=== PATIENT | male | born 1970 | race Two or more races ===

== ENCOUNTER 2023-05-30 08:04 | Outpatient (REF) | payer MEDICAID, SELFPAY ==
[2023-05-30 14:38] LABS: MANUAL DIFF FLAG NO
[2023-05-30 14:43] LABS: Basophils Absolute Auto 0.1 X10*3/uL (0.0-0.2); Basophils Percent Auto 0.7 % (0-2); Eosinophils Absolute Auto 0.1 X10*3/uL (0.0-0.4); Eosinophils Percent Auto 2.1 % (0-4); Hematocrit 51.3 % (42.0-52.0); Hemoglobin 16.2 g/dl (14.0-18.0); Imm Gran Abs Auto 0.02 X10*3/uL (0.00-0.03); Imm Gran Pct Auto 0.3 % (0.0-0.4); Lymphocytes Absolute Auto 2.6 X10*3/uL (1.2-4.9); Mean Corpuscular HGB Conc 31.6 g/dl (31.0-36.0); Mean Corpuscular Hemoglobin 29.1 pg (27.0-33.0); Mean Corpuscular Volume 92.3 fL (80.0-98.0); Mean Platelet Volume 11.2 fL (9.4-12.4); Monocytes Absolute Auto 0.8 X10*3/uL (0.1-1.2); Monocytes Percent Auto 11.2 % (2-11); Neutrophils Absolute Auto 3.1 x10*3/uL (2.0-8.3); Neutrophils Percent Auto 46.7 % (45-73); Platelet Count 225 X10*3/uL (160-400); Red Blood Count 5.56 X10*6/uL (4.60-5.80); Red Cell Distribution Width 13.8 % (11.0-16.0); White Blood Count 6.7 X10*3/uL (4.8-10.8)
[2023-05-30 15:10] LABS: Alanine Aminotransferase 22 U/L (0-40); Albumin Level 4.4 g/dL (3.5-5.0); Alkaline Phosphatase 76 U/L (39-117); Anion Gap 15 (12-20); Aspartate Amino Transferase 20 U/L (5-37); Bilirubin Direct 0.3 mg/dL (0.0-0.5); Bilirubin Total 0.7 mg/dL (0.0-1.0); Blood Urea Nitrogen 13 mg/dL (9-16); Carbon Dioxide 26 mmol/L (22-29); Chloride 104 mmol/L (96-108); Cholesterol 127 mg/dL (<200); Estimated Glomerular Filt Rate > 60; Glucose Fasting 135 mg/dL (60-99); HDL Cholesterol 40 mg/dL (>40); LDL Cholesterol Calculated 58 mg/dL (<100); Potassium 3.8 mmol/L (3.3-5.1); Sodium 141 mmol/L (135-145); Total Protein 7.5 g/dL (6.5-8.0); Triglycerides 149 mg/dL (<150)
[2023-05-30 15:17] LABS: TSH reflex Free T4 2.32 uIU/mL (0.32-4.0)
[2023-05-30 15:26] LABS: Creatinine Urine 68.12 mg/dL; Microalbum/Creatinine Ratio Ur 98.3 ug/mg cr (<30)
== END 2023-05-30 08:05 | disposition home or self-care (01) ==
LOC: HO.CHCLDS 08:04
PROVIDERS: Visit Provider Internal Medicine
DX: E11.65 Type 2 diabetes mellitus with hyperglycemia (principal)
CPT/HCPCS: 36415; 80048; 80061; 80076; 82043; 82570; 84443; 85025

== ENCOUNTER 2024-11-22 10:22 | Outpatient (REF) | payer MEDICAID, SELFPAY ==
--- OUTSIDE RECORDS SUMMARY | 2024-11-22 11:37 | XMS_ITS | Clinical Summary ---
Author Organization [email or web address] Address [address] [facility] [address] [place] [address] Care Team Providers Care Senior Environmental Scientist Name Role Phone Herminio Swartz MD Primary Care Provider [phone] Allergies Active Allergy Reactions Criticality Noted Date Comments Sitagliptin 03/24/2021 Medications Invokana 300 MG TAKE 1 TABLET BY MOUTH EVERY DAY BEFORE FIRST MEAL OF THE DAY 12/26/19 23 Active celecoxib (CeleBREX) 100 MG capsuleIndicat ions:Plantar fasciitis TAKE 1 CAPSULE(100 MG) BY MOUTH TWICE DAILY 60 capsule 11/03/19 24 Active atorvastatin (Lipitor) 40 MG tabletIndicati ons:Hyperchole sterolemia Take 1 tablet (40 mg) by mouth Once per day. 90 tablet 3 10/31/19 25 Active omeprazole (PriLOSEC) [address] capsuleIndicat ions:Hyperchol esterolemia Take 1 capsule (20 mg) by mouth before breakfast. Do not crush or chew. 30 capsule 3 10/31/19 25 Active canagliflozin (Invokana) 300 MGIndications: Type 2 diabetes mellitus with hyperglycemia, without long-term current use of insulin (CMS/HCC) TAKE 1 TABLET BY MOUTH EVERY DAY BEFORE FIRST MEAL OF THE DAY 90 tablet 3 10/31/19 25 Active lisinopril 5 MG tabletIndicati ons:Type 2 diabetes mellitus with hyperglycemia, without long-term current use of insulin (CMS/HCC) TAKE 1 TABLET BY MOUTH ONCE DAILY 90 tablet 3 10/31/19 25 Active metFORMIN (Glucophage) 500 MG tabletIndicati ons:Type 2 diabetes mellitus with hyperglycemia, without long-term current use of insulin (CMS/HCC) TAKE 2 TABLETS BY MOUTH TWICE DAILY WITH THE MORNING AND EVENING MEAL 360 tablet 10/31/19 25 Active Alcohol Swabs (Easy Touch Alcohol Prep Medium) 70 % padsIndication s:Type 2 diabetes mellitus with hyperglycemia, without long-term current use of insulin (CMS/[facility]),Type 2 diabetes mellitus with hyperglycemia, without long-term current use of insulin ([facility]) Once a day 100 each 11 10/31/19 25 Active Alcohol Swabs (Easy Touch Alcohol Prep Medium) 70 % pads USE DIRECTED DAILY 05/30/20 22 025 Discontinued(Re order (will not trigger notification to Pharmacy)) canagliflozin (Invokana) 300 MGIndications: Type 2 diabetes mellitus with hyperglycemia, without long-term current use of insulin ([facility]) TAKE 1 TABLET BY MOUTH EVERY DAY BEFORE FIRST MEAL OF THE DAY 90 tablet 3 05/25/20 23 025 Discontinued(Ot her) omeprazole (PriLOSEC) [address] capsuleIndicat ions:Hyperchol esterolemia TAKE 1 CAPSULE BY MOUTH BEFORE BREAKFAST DAILY. DO NOT CRUSH, CHEW, OR SPLIT. 30 capsule 3 03/01/20 24 025 Discontinued(Re order (will not trigger notification to Pharmacy)) lisinopril 5 MG tabletIndicati ons:Type 2 diabetes mellitus with hyperglycemia, without long-term current use of insulin ([facility]) TAKE 1 TABLET BY MOUTH ONCE DAILY 90 tablet 3 04/22/20 24 025 Discontinued(Re order (will not trigger notification to Pharmacy)) atorvastatin (Lipitor) 40 MG tabletIndicati ons:Hyperchole sterolemia TAKE 1 TABLET(40 MG) BY MOUTH IN THE MORNING 90 tablet 3 04/22/20 24 025 Discontinued(Re order (will not trigger notification to Pharmacy)) metFORMIN (Glucophage) 500 MG tabletIndicati ons:Type 2 diabetes mellitus with hyperglycemia, without long-term current use of insulin ([facility]) TAKE 2 TABLETS BY MOUTH TWICE DAILY WITH THE MORNING AND EVENING MEAL 360 tablet 04/22/20 24 025 Discontinued(Re order (will not trigger notification to Pharmacy)) metFORMIN (Glucophage) 500 MG tabletIndicati ons:Type 2 diabetes mellitus with hyperglycemia, without long-term current use of insulin ([facility]) TAKE 2 TABLETS BY MOUTH TWICE DAILY WITH THE MORNING AND EVENING MEAL 360 tablet 10/30/19 25 025 Discontinued(Re order (will not trigger notification to Pharmacy)) Active Problems Problem Noted Date Diagnosed Date Hypercholesterolemia 05/25/2023 Type 2 diabetes mellitus 05/25/2023 Encounters Date Type Department Care Team Description 10/31/2024 11:30 AM EST Office Visit [facility] MED & PEDS [address] [place] [address] Herminio Swartz MD Hypercholesterolemia (Primary Dx); Type 2 diabetes mellitus with hyperglycemia, without long-term current use of insulin ([facility]); Encounter for screening colonoscopy; Hypercholesterolemia; Type 2 diabetes mellitus with hyperglycemia, without long-term current use of insulin ([facility]); Encounter for immunization 10/31/2024 Travel 10/30/2024 Refill [facility] MEDICINE [address] [place] [address] Herminio Swartz MD Type 2 diabetes mellitus with hyperglycemia, without long-term current use of insulin ([facility]) from Last 3 Months Immunizations Name Administration Dates Next Due Influenza injectable quadrivalent preservative f ree 10/05/2018 Pneumococcal Conjugate PCV 13 03/13/2017, 017 Pneumococcal Conjugate PCV 20 10/31/2024 Tdap 03/13/2017 Social History Tobacco Use Types Packs/Day Years Used Date Smoking Tobacco: Former Cigarettes 1 30 1 991 - 2020 Smokeless Tobacco: Never Tobacco Cessation:Counseling Given: Not Answered Depression Answer Date Recorded Patient Health Questionnaire-9 Score 0 05/25/2023 Housing Stability Answer Date Recorded What is your housing situation today? I have emerald youssef 07/21/[address] you li ve. Do you have problems with any of the following? None of the above 07/21/2023 Food Insecurity Answer Date Recorded Within the past 12 months, y ou worried that your food would run out before you got money to buy more: Never True 07/21/2023 Within the past 12 months,th e food you bought just didn't last and you didn't have enough money to get more: Never True 11/2022 Utilities Answer Date Recorded In the past 12 months, has t he electric, gas, oil or water [employer] threatened to shut off services in your home? No 07/21/2023 Depression Answer Date Recorded Patient Health Questionnaire-2 Score 0 05/25/2023 Sex and Gender Information Value Date Recorded Sex Assigned at Male 07/18/2022 10:34 AM EDT Legal Sex Male 10:34 AM EDT Gender Identity Male 07/18/2022 10:34 AM EDT Sexual Orientation Straight 07/18/2022 10 :34 AM EDT Last Filed Vital Signs Vital Sign Reading Time Taken Comments Blood Pressure 145/97 10/31/2024 10:52 AM EST Pulse 87 10/31/2024 10:52 AM EST Temperature 36.8 ??C (98.3 ??F) 10/31/2024 10:[address] Respiratory Rate 20 10/31/2024 10:52 AM EST Oxygen Saturation 98% 10/31/2024 10:52 AM EST Inhaled Oxygen Concentration - - Weight 69.2 kg (152 lb 9.6 oz) 10/31/2024 10:52 AM EST Height 175.3 cm (5' 9 ) 10/31/2024 10:52 AM EST Body Mass Index 22.54 10/31/2024 10:52 AM EST Plan of Treatment Upcoming Encounters Date Type Department Care Team (Late st Contact Info) Description 12/19/2024 9:15 AM EDT Office Visit [facility] CH[facility] MED & PEDS [address] [place] [address] Herminio Swartz MD [address] [place] [address] Health Maintenance Due Date Last Done Comments CT Colonography 1972 Colonoscopy 1972 Colorectal Cancer Screening 1972 FIT DNA/Cologuard 1972 FIT 1972 FOBT 1972 HIV Screening 1972 SDOH Screening 1972 Sigmoidoscopy 1972 Alcohol/Substance Use Screening 1984 Family Planning (PISQ) 1987 Hepatitis C Screening 1990 Hepatitis B Vaccines (1 of 3 - 19+ 3-dose series) 1991 Lung Cancer Screening 2022 Zoster Vaccines (1 of 2) 2022 Diabetes: Foot Exam 05/24/2023 COVID-19 Vaccine (4 2023-2 5 season) 2024 09/03/2021, 02/18/2021, 01/28/2021 Influenza Vaccine (#1) 2024 10/05/2018 Depression Screening 05/25/2024 05/25/2023, 05/25/2023 Diabetes: Urine Protein Screening 05/30/2024 05/30/2023, 02/19/2021 Lipid Panel 05/30/2024 05/30/2023, 02/19/2021 Eye Exam 07/17/2024 07/17/2023 Diabetes: Hemoglobin A1C 01/28/2025 025, 10/09/2023, 05/25/2023 Tobacco Screening 10/31/2025 10/31/2024 DTaP/Tdap/Td Vaccines (2 - T d or Tdap) 03/13/2027 03/13/2017 RSV Patients and Patients Aged 60 years or older (1 - 1-dose 75+ series) 2047 Pneumococcal Vaccine: 50+ Years Completed 10/31/2024, 03/13/2017, 03/13/2017 HIB Vaccines Aged Out No longer eligi ble based on patient's age to complete this topic HPV Vaccines Aged Out No longer eligi ble based on patient's age to complete this topic Hepatitis A Vaccines Aged Out No long er eligible based on patient's age to complete this topic IPV Vaccines Aged Out No longer eligi ble based on patient's age to complete this topic Meningococcal Vaccine Aged Out No abdi schuyler eligible based on patient's age to complete this topic RSV under 20 months Aged Out No longe r eligible based on patient's age to complete this topic Rotavirus Vaccines Aged Out No longer eligible based on patient's age to complete this topic Procedures Procedure Name Priority Date/Time Associated Diagnosis Comments POCT GLUCOSE Routine 10/31/2024 11:02 AM EST Type 2 diabetes mellitus with hyperglycemia, without long-term current use of insulin ([facility]) POCT GLYCATED HEMOGLOBIN, TOTAL Routine 10/31/2024 11:02 AM EST Type 2 diabetes mellitus with hyperglycemia, without long-term current use of insulin ([facility]) DIABETES EYE EXAM Routine 07/17/2023 ALBUMIN, RANDOM URINE W/CREATININE Routine 05/30/2023 8:10 AM EDT LIPID PANEL, STANDARD Routine 05/30/2023 8:09 AM EDT Type 2 diabetes mellitus with hyperglycemia, without long-term current use of insulin ([facility]) from Last 3 Months or Most Recently Relevant to Health Maintenance Results * (ABNORMAL) POCT A1C (10/31/2024 11:02 AM EST) Hemoglobin A1C 11.6(A) 4.0 - 6.0 % QC Media Lot # Comment:[id number] Lot# Expiration Date Comment:07/05/2026 Blood 10/31/2024 11:0 2 AM EST Herminio Swartz MD POINT OF CARE TEST ENTER/ED IT ORDERABLES Final Result * (ABNORMAL) POCT glucose manually resulted (10/31/2024 11:02 AM EST) Glucose Blood, POC 296(A) 60 - 200 mg/dL QC Media Lot # Comment:[id number] Lot# Expiration Date Comment:12/24/2024 Blood Capillary blood specimen / Unknown 10/31/2024 11:02 AM EST Herminio Swartz MD POINT OF CARE TEST ENTER/ED IT ORDERABLES Final Result * (ABNORMAL) Diabetes Eye Exam (07/17/2023) Eye Exam Abnormal(A) Normal Narrative Arline Bansal [place] - 07/17/2023 Follow in one year us Daria Adornato [employer] MAINTENANCE Final Result * (ABNORMAL) Albumin, Random Urine W/Creatinine (05/30/2023 8:10 AM EDT) Creatinine, Urine 68.12 mg/dL [facility] Microalbumin Urine 67.0 mg/L H [facility] Microalbum Creatinine Ratio Ur 98.3(H) <30 ug/mg cr [facility] Comment:Albumin/Creatinine R atio Reference Ranges: Normal: < 30 ug/mg creatinine Microalbuminuria: 30 - 300 ug/mg creatinineClinical Albuminuria: > 300 ug/mg creatinine 05/30/2023 8:10 AM EDT 05/30/2023 2:33 PM EDT us Herminio Swartz MD LAB URINE ORDERABLES Final Result [facility] [address] [place] [phone] * (ABNORMAL) Lipid Panel, Standard (05/30/2023 8:09 AM EDT) Triglycerides 149 <150 mg/dL [facility] Comment:Desirable Triglyceri de: less than 150 mg/dLBorderline High Triglyceride 150-199 mg/dLHigh Triglyceride: 200-499 mg/dLVery High Triglyceride: greater than or equal to 5OO mg/dL Cholesterol 127 <200 mg/dL [facility] Comment:Desirable Cholestero l: less than 200 mg/dLBorderline High Cholesterol: 200-239 mg/dLHigh Cholesterol: greater than 239 mg/dL LDL Cholesterol Calculated 58 <100 mg/dL [facility] Comment:Desirable LDL: less than 100 mg/dLNear Optimal/Above Optimal LDL: 110- 129 mg/dLBorderline High LDL: 130-159 mg/dLHigh LDL: 160-189 mg/dLVery High LDL: greater than or equal to 190 mg/dL HDL Cholesterol 40(L) >40 mg/dL [facility] Comment:Desirable HDL: great er than 40 mg/dL Note: This HDL assay may give artificially low results in patients with liver disease. Blood Venous blood specimen / Unknown 05/30/2023 8:09 AM EDT 05/30/2023 2:34 PM EDT Herminio Swartz MD LAB BLOOD ORDERABLES Final Result [facility] [address] [place] [address] [phone] from Last 3 Months or Most Recently Relevant to Health Maintenance Insurance [facility] C3 Care Teams Senior Environmental Scientist Relationship Specialty Start Date End Date Herminio Swartz MD [address] [place] [address] PCP - General Internal Medicine 10/05/18
--- OUTSIDE RECORDS SUMMARY | 2024-11-22 11:37 | XMS_ITS | Encounter Summary ---
Author Organization [email or web address] Address [address] [facility] [address] [place] [address] Care Team Providers Care Funding Analyst Name Role Phone Herminio Swartz MD Primary Care Provider [phone] Reason for Visit * Reason Comments Med Refill Encounter Details Date Type Department Care Team ([facility] st Contact Info) Description 11/13/2023 Refill [facility] MED & PEDS [address] [place], [place] [id number] Herminio Swartz MD [address] [place] [address] Plantar fasciitis Social History Tobacco Use Types Packs/Day Years Used Date Smoking Tobacco: Former Cigarettes 1 30 1 991 - 2020 Smokeless Tobacco: Never Depression Answer Date Recorded Patient Health Questionnaire-9 [...] t he electric, gas, oil or water company threatened to shut off services in your home? No 07/21/2023 Depression Answer Date Recorded Patient Health Questionnaire-2 Score 0 05/25/2023 Sex and Gender Information Value Date Recorded Sex Assigned at Male 07/18/2022 10:34 AM EDT Legal Sex Male 10:34 AM EDT Gender Identity Male 07/18/2022 10:34 AM EDT Sexual Orientation Straight 07/18/2022 10 :34 AM EDT documented as of this encounter Plan of Treatment Upcoming Encounters Date Type Department Care Team (Late st Contact Info) Description 12/19/2024 9:15 AM EDT Office Visit [facility] MED & PEDS [address] [place] [address] Herminio Swartz MD [address] [place] [address] documented as of this encounter Visit Diagnoses Diagnosis Plantar fasciitis Plantar fascial fibromatosis documented in this encounter Additional Health Concerns Assessment Noted Time PHQ-9 Depression Total Score: 0 05/25/20 23 4:33 PM EDT documented as of this encounter Care Teams Funding Analyst Relationship Specialty Start Date End Date Herminio Swartz MD [address] [place] [address] PCP - General Internal Medicine 10/05/18 documented as of this encounter
--- OUTSIDE RECORDS SUMMARY | 2024-11-22 11:37 | XMS_ITS | Encounter Summary ---
Author Organization [employer] Address [address] [facility] 7[address] [place] [address] Care Team Providers Care Director Recreation Name Role Phone Herminio Swartz MD Primary Care Provider [phone]- [phone] Encounter Details Date Type Department Care Team (Late st Contact Info) Description 01/20/2023 Orders Only [facility] MED & PEDS [address] [place] [address] Shaniqua Harp LPN Social History Tobacco Use Types Packs/Day Years Used Date Smoking Tobacco: Never Assessed Sex and Gender Information Value Date Recorded Sex Assigned at Male 07/18/2022 10:34 AM EDT Legal Sex Male 10:34 AM EDT Gender Identity Male 07/18/2022 10:34 AM EDT Sexual Orientation Straight 07/18/2022 10 :34 AM EDT documented as of this encounter Plan of Treatment Upcoming Encounters Date Type Department Care Team (Late st Contact Info) Description 12/19/2024 9:15 AM EDT Office Visit [facility] MED & PEDS [address] [place] [address] Herminio Swartz MD [address] [place] [address] documented as of this encounter Procedures Procedure Name Priority Date/Time Associated Diagnosis Comments ALBUMIN, RANDOM URINE W/CREATININE Routine 05/30/2023 8:10 AM EDT BASIC METABOLIC PANEL, FASTING Routine 05/30/2023 8:09 AM EDT documented in this encounter Results * (ABNORMAL) Albumin, Random Urine W/Creatinine (05/30/2023 8:10 AM EDT) Creatinine, Urine 68.12 mg/dL [facility] Microalbumin Urine 67.0 mg/L H [facility] Microalbum Creatinine Ratio Ur 98.3(H) <30 ug/mg cr [facility] Comment:Albumin/Creatinine R atio Reference Ranges: Normal: < 30 ug/mg creatinine Microalbuminuria: 30 - 300 ug/mg creatinineClinical Albuminuria: > 300 ug/mg creatinine 05/30/2023 8:10 AM EDT 05/30/2023 2:33 PM EDT us Herminio Swartz MD LAB URINE ORDERABLES Final Result [facility] [address] [place] [phone] * (ABNORMAL) Basic Metabolic Panel, Fasting (05/30/2023 8:09 AM EDT) Sodium 141 135 - 145 mmol/L [facility] Potassium 3.8 3.3 - 5.1 mmol/L [facility] Chloride 104 96 - 108 mmol/L [facility] Carbon Dioxide 26 22 - 29 mmol/L [facility] Anion Gap 15 12 - 20 [facility] Urea Nitrogen (BUN) 13 9 - 16 mg/dL [facility] Creatinine, Serum 0.79 0.5 - 1.4 mg/dL [facility] Estimated Glomerular Filt Rate >60 [facility] Comment:NOTE: For -Am erican individuals, multiply the result by 1.210.Chronic Kidney Disease: Estimated GFR < 60 mL/min/[id number] Kidney Disease: Estimated GFR < 15 mL/min/1.73m2 Glucose Fasting 135(H) 60 - 99 mg/dL [facility] Comment:A fasting glucose of 126 mg/dl or greater on more than oneoccasion is considered diagnostic of diabetes. Calcium 10.0 8.4 - 10.2 mg/dL [facility] 05/30/2023 8:09 AM EDT 05/30/2023 2:34 PM EDT Herminio Swartz MD LAB BLOOD ORDERABLES Final Result [facility] [address] [place] [phone] documented in this encounter Visit Diagnoses Not on filedocumented in this encounter Care Teams Director Recreation Relationship Specialty Start Date End Date Herminio Swartz MD [address] [place] [phone] PCP - General Internal Medicine 10/05/18 documented as of this encounter
--- OUTSIDE RECORDS SUMMARY | 2024-11-22 11:37 | XMS_ITS | Encounter Summary ---
Author Organization [employer] Address [address] [facility] [address] [place] [address] Care Team Providers Care Health Teacher Name Role Phone Herminio Swartz MD Primary Care Provider [phone] Reason for Visit * Reason Comments Follow-up Dm/bp Diabetes Hyperlipidemia Encounter Details Date Type Department Care Team (Latest Contact Info) Description 10/31/2024 11:30 AM EST Office Visit [facility] P[facility]S [address] [place] [address] Herminio Swartz MD [address] [place] [address] Hypercholesterolemia (Primary Dx); Type 2 diabetes mellitus with hyperglycemia, without long-term current use of insulin (CMS/HCC); Encounter for screening colonoscopy; Hypercholesterolemia; Type 2 diabetes mellitus with hyperglycemia, without long-term current use of insulin (CMS/HCC); Encounter for immunization Social History Tobacco Use Types Packs/Day Years Used Date Smoking Tobacco: Former Cigarettes 30 1 991 - 2020 Smokeless Tobacco: Never Depression Answer Date Recorded Patient Health Questionnaire-9 Score 0 05/25/2023 Housing Stability Answer Date Recorded What is your housing situation today? I have emeraldkinza youssef 07/21/[address] you [...] AM EDT documented as of this encounter Last Filed Vital Signs Vital Sign Reading [...] Mass Index 22.54 10/31/2024 10:52 AM EST documented in this encounter Progress Notes * Herminio Swartz MD - 10/31/2024 11:30 AM EST Subjective Patient ID: Reagan Padilla is a 54 y.o. male who presents for Follow-up (Dm/bp), Diabetes, and Hyperlipidemia. Diabetes He presents for his follow-up diabetic visit. He has type 2 diabetes mellitus. Pertinent negatives for hypoglycemia include no pallor. Pertinent negatives for diabetes include no blurred vision, no chest pain, no fatigue, no foot paresthesias, no foot ulcerations, no polydipsia, no polyphagia, no polyuria, no visual change, no weakness and no weight loss. Hyperlipidemia Pertinent negatives include no chest pain, myalgias or shortness of breath. Mr. Reagan Padilla has lost his insurance and has been off medication for the last 3 months. He has not been able to check his fingerstick at home. Has not been checking his blood pressure either. He denies any headache or blurry vision today. Denies any symptoms of hypoglycemia since his last visit. Patient Active Problem List Diagnosis Hypercholesterolemia Type 2 diabetes mellitus ([facility]) Current Outpatient Medications on File Prior to Visit Medication Sig Dispense Refill celecoxib (CeleBREX) 100 MG capsule TAKE 1 CAPSULE(100 MG) BY MOUTH TWICE DAILY 60 capsule 0 Invokana 300 MG TAKE 1 TABLET BY MOUTH EVERY DAY BEFORE FIRST MEAL OF THE DAY [DISCONTINUED] Alcohol Swabs (Easy Touch Alcohol Prep Medium) 70 % pads USE DIRECTED DAILY [DISCONTINUED] atorvastatin (Lipitor) 40 MG tablet TAKE 1 TABLET(40 MG) BY MOUTH IN THE MORNING 90 tablet 3 [DISCONTINUED] canagliflozin (Invokana) 300 MG TAKE 1 TABLET BY MOUTH EVERY DAY BEFORE FIRST MEAL OF THE DAY 90 tablet 3 [DISCONTINUED] lisinopril 5 MG tablet TAKE 1 TABLET BY MOUTH ONCE DAILY 90 tablet 3 [DISCONTINUED] metFORMIN (Glucophage) 500 MG tablet TAKE 2 TABLETS BY MOUTH TWICE DAILY WITH THE MORNING AND EVENING MEAL 360 tablet 0 [DISCONTINUED] metFORMIN (Glucophage) 500 MG tablet TAKE 2 TABLETS BY MOUTH TWICE DAILY WITH THE MORNING AND EVENING MEAL 360 tablet 0 [DISCONTINUED] omeprazole (PriLOSEC) [address] capsule TAKE 1 CAPSULE BY MOUTH BEFORE BREAKFAST DAILY. DO NOT CRUSH, CHEW, OR SPLIT. 30 capsule 3 No current facility-administered medications on file prior to visit. Review of Systems Constitutional: Negative for appetite change, chills, diaphoresis, fatigue and weight loss. Eyes: Negative for blurred vision. Respiratory: Negative for cough, choking and shortness of breath. Cardiovascular: Negative for chest pain and leg swelling. Gastrointestinal: Negative for anal bleeding, blood in stool and constipation. Endocrine: Negative for polydipsia, polyphagia and polyuria. Musculoskeletal: Negative for gait problem, joint swelling and myalgias. Skin: Negative for pallor and rash. Neurological: Negative for weakness. Objective BP (!) 145/97 (BP Location: Left arm, Patient Position: Sitting, BP Cuff Size: Large adult) Pulse87 Temp 98.3 ??F (36.8 ??C) (Oral) Resp 20 Ht 5' 9 (1.753 m) Wt 152 lb 9.6 oz (69.2 kg) SpO2 98% BMI 22.54 kg/m?? Physical Exam Constitutional: General: He is not in acute distress. Appearance: Normal appearance. He is not ill-appearing, toxic-appearing or diaphoretic. Cardiovascular: Rate and Rhythm: Normal rate. Heart sounds: No murmur heard. No friction rub. No gallop. Pulmonary: Effort: Pulmonary effort is normal. Abdominal: Palpations: Abdomen is soft. Skin: General: Skin is warm. Neurological: General: No focal deficit present. Mental Status: He is alert. Psychiatric: Mood and Affect: Mood normal. Assessment/Plan Diagnoses and all orders for this visit: Hypercholesterolemia - CBC auto differential; Future - Comprehensive Metabolic Panel; Future - Lipid Panel, Standard; Future - TSH W/Reflex to FT4; Future - Albumin, Random Urine W/Creatinine; Future - atorvastatin (Lipitor) 40 MG tablet; Take 1 tablet (40 mg) by mouth Once per day. - omeprazole (PriLOSEC) [address] capsule; Take 1 capsule (20 mg) by mouth before breakfast. Do not crush or chew. Type 2 diabetes mellitus with hyperglycemia, without long-term current use of insulin ([facility]) - POCT A1C - POCT glucose manually resulted - CBC auto differential; Future - Comprehensive Metabolic Panel; Future - Lipid Panel, Standard; Future - TSH W/Reflex to FT4; Future - Albumin, Random Urine W/Creatinine; Future - Hepatitis C Antibody with Reflex to HCV, RNA, Quantitative, Real-Time PCR; Future - canagliflozin (Invokana) 300 MG; TAKE 1 TABLET BY MOUTH EVERY DAY BEFORE FIRST MEAL OF THE DAY - lisinopril 5 MG tablet; TAKE 1 TABLET BY MOUTH ONCE DAILY - metFORMIN (Glucophage) 500 MG tablet; TAKE 2 TABLETS BY MOUTH TWICE DAILY WITH THE MORNING AND EVENING MEAL - Alcohol Swabs (Easy Touch Alcohol Prep Medium) 70 % pads; Once a day Low carb diet Labs ordered. Pt will be contacted w/ results. Encounter for screening colonoscopy - Cologuard?? colon cancer screening; Future Hypercholesterolemia Comments: Continue w/ atorvastatin 40 mg daily Low Chol diet Orders: - CBC auto differential; Future - Comprehensive Metabolic Panel; Future - Lipid Panel, Standard; Future - TSH W/Reflex to FT4; Future - Albumin, Random Urine W/Creatinine; Future - atorvastatin (Lipitor) 40 MG tablet; Take 1 tablet (40 mg) by mouth Once per day. - omeprazole (PriLOSEC) [address] capsule; Take 1 capsule (20 mg) by mouth before breakfast. Do notcrush or chew. Type 2 diabetes mellitus with hyperglycemia, without long-term current use of insulin (CMS/HCC) Comments: No change Resume home medication Low carb diet. Follow up in 3 months Orders: - POCT A1C - POCT glucose manually resulted - CBC auto differential; Future - Comprehensive Metabolic Panel; Future - Lipid Panel, Standard; Future - TSH W/Reflex to FT4; Future - Albumin, Random Urine W/Creatinine; Future - Hepatitis C Antibody with Reflex to HCV, RNA, Quantitative, Real-Time PCR; Future - canagliflozin (Invokana) 300 MG; TAKE 1 TABLET BY MOUTH EVERY DAY BEFORE FIRST MEAL OF THE DAY - lisinopril 5 MG tablet; TAKE 1 TABLET BY MOUTH ONCE DAILY - metFORMIN (Glucophage) 500 MG tablet; TAKE 2 TABLETS BY MOUTH TWICE DAILY WITH THE MORNING AND EVENING MEAL - Alcohol Swabs (Easy Touch Alcohol Prep Medium) 70 % pads; Once a day Encounter for immunization - PCV-20 VACCINE 6 wks + documented in this encounter Plan of Treatment Upcoming Encounters Date Type Department Care Team (Late st Contact Info) Description 12/19/2024 9:15 AM EDT Office Visit [facility] P[facility]S [address] [place] [id number] Herminio Swartz MD [address] [place] [id number] Scheduled Orders Name Type Priority Associated Diagnoses Orde r Schedule CBC auto differential Lab Routine Type 2 diabetes mellitus with hyperglycemia, without long-term current use of insulin (CMS/HCC) Hypercholesterolemia Expected: 10/31/2024 (Approximate), Expires: 10/31/2025 Comprehensive Metabolic Panel Lab Routine Type 2 diabetes mellitus with hyperglycemia, without long-term current use of insulin (CMS/HCC) Hypercholesterolemia Expected: 10/31/2024 (Approximate), Expires: 10/31/2025 Lipid Panel, Standard Lab Routine Type 2 diabetes mellitus with hyperglycemia, without long-term current use of insulin (CMS/HCC) Hypercholesterolemia Expected: 10/31/2024 (Approximate), Expires: 10/31/2025 TSH W/Reflex to FT4 Lab Routine Type 2 diabetes mellitus with hyperglycemia, without long-term current use of insulin ([facility]/HCC) Hypercholesterolemia Expected: 10/31/2024 (Approximate), Expires: 10/31/2025 Albumin, Random Urine W/Creatinine Lab Routine Type 2 diabetes mellitus with hyperglycemia, without long-term current use of insulin ([facility]/HCC) Hypercholesterolemia Expected: 10/31/2024 (Approximate), Expires: 10/31/2025 Hepatitis C Antibody with Reflex to HCV, RNA, Quantitative, Real-Time PCR Lab Routine Type 2 diabetes mellitus with hyperglycemia, without long-term current use of insulin ([facility]CC) Expected: 10/31/2024, Expires: 10/31/2025 Cologuard?? colon cancer screening Lab Routine Encounter for screening colonoscopy Expected: 10/31/2024 (Approximate), Expires: 10/31/2025 documented as of this encounter Procedures Procedure Name Priority Date/Time Associated Diagnosis Comments POCT GLYCATED HEMOGLOBIN, TOTAL Routine 10/31/2024 11:02 AM EST Type 2 diabetes mellitus with hyperglycemia, without long-term current use of insulin ([facility]) POCT GLUCOSE Routine 10/31/2024 11:02 AM EST Type 2 diabetes mellitus with hyperglycemia, without long-term current use of insulin ([facility]) documented in this encounter Results * (ABNORMAL) POCT glucose manually resulted (10/31/2024 11:02 AM EST) Glucose Blood, POC 296(A) 60 - 200 mg/dL QC Media Lot # Comment:[id number] Lot# Expiration Date Comment:12/24/2024 Blood Capillary blood specimen / Unknown 10/31/2024 11:02 AM EST Herminio Swartz MD POINT OF CARE TEST ENTER/ED IT ORDERABLES Final Result * (ABNORMAL) POCT A1C (10/31/2024 11:02 AM EST) Hemoglobin A1C 11.6(A) 4.0 - 6.0 % QC Media Lot # Comment:[id number] Lot# Expiration Date Comment:07/05/2026 Blood 10/31/2024 11:0 2 AM EST Herminio Swartz MD POINT OF CARE TEST ENTER/ED IT ORDERABLES Final Result documented in this encounter Visit Diagnoses Diagnosis Hypercholesterolemia- Primary Pure hypercholesterolemia Type 2 diabetes mellitus with hyperglycemia, without long-term current use of insulin ([facility]) Encounter for screening colonoscopy Encounter for immunization documented in this encounter Additional Health Concerns Assessment Noted Time PHQ-9 Depression Total Score: 0 05/25/20 23 4:33 PM EDT documented as of this encounter Care Teams Health Teacher Relationship Specialty Start Date End Date Herminio Swartz MD [address] [place] [id number] PCP - General Internal Medicine 10/05/18 documented as of this encounter
--- OUTSIDE RECORDS SUMMARY | 2024-11-22 11:37 | XMS_ITS | Encounter Summary ---
Author Organization [employer] Address [address] [facility] [address] [place] [address] Care Team Providers Care Cinder Pit Worker Name Role Phone Herminio Swartz MD Primary Care Provider [phone] Encounter Details Date Type Department Care Team (Latest Contact Info) Description 10/31/2024 Travel Social History Tobacco Use Types Packs/Day Years Used Date Smoking Tobacco: Former Cigarettes - 2020 Smokeless Tobacco: Never Depression Answer [...] Description 12/19/2024 9:15 AM EDT Office Visit [facility] MED & PEDS [address] [place] [address] Herminio Swartz MD [address] [place] [address] documented as of this encounter Visit Diagnoses Not on filedocumented in this encounter Additional Health Concerns Assessment Noted Time PHQ-9 Depression Total Score: 0 05/25/20 23 4:33 PM EDT documented as of this encounter Care Teams Cinder Pit Worker Relationship Specialty Start Date End Date Herminio Swartz MD [address] [place] [address] PCP - General Internal Medicine 10/05/18 documented as of this encounter
--- OUTSIDE RECORDS SUMMARY | 2024-11-22 11:37 | XMS_ITS | Encounter Summary ---
Author Organization [employer] Address [address] [facility] [address] [place] [address] Care Team Providers Care Interlocking Machine Operator Name Role Phone Herminio Swartz MD Primary Care Provider [phone] Reason for Visit * Reason Onset Date Comments Med Refill 10/30/2024 Encounter Details Date Type Department Care Team (Late st Contact Info) Description 10/30/2024 Refill [facility] [address] [place] [address] Herminio Swartz MD [address] [place] [address] Type 2 diabetes mellitus with hyperglycemia, without long-term current use of insulin ([facility]) Social History Tobacco Use Types Packs/Day Years [...] AM EDT documented as of this encounter Miscellaneous Notes * Telephone Encounter - Shanda Lucero - 10/30/2024 11:34 AM EST TC from pt requesting medication refill. Medications needing refill : metFORMIN (Glucophage) 500 MG tablet To be sent to: [id number] - [place], [place] - [address] documented in this encounter Plan of Treatment Upcoming Encounters Date Type Department Care Team (Late st Contact Info) Description 12/19/2024 9:15 AM EDT Office Visit [facility] PEDS [address] [place] [address] Herminio Swartz MD [address] [place] [address] documented as of this encounter Visit Diagnoses Diagnosis Type 2 diabetes mellitus with hyperglycemia, without long-term current use of insulin ([facility]) documented in this encounter Additional Health Concerns Assessment Noted Time PHQ-9 Depression Total Score: 0 05/25/20 23 4:33 PM EDT documented as of this encounter Care Teams Interlocking Machine Operator Relationship Specialty Start Date End Date Herminio Swartz MD [address] [place] [address] PCP - General Internal Medicine 10/05/18 documented as of this encounter
[2024-11-22 14:19] LABS: MANUAL DIFF FLAG NO
[2024-11-22 14:22] LABS: Basophils Absolute Auto 0.1 X10*3/uL (0.0-0.2); Basophils Percent Auto 1.1 % (0-2); Eosinophils Absolute Auto 0.3 X10*3/uL (0.0-0.4); Eosinophils Percent Auto 4.5 % (0-4); Hematocrit 47.2 % (42.0-52.0); Hemoglobin 15.5 g/dl (14.0-18.0); Imm Gran Abs Auto 0.01 X10*3/uL (0.00-0.03); Imm Gran Pct Auto 0.2 % (0.0-0.4); Lymphocytes Absolute Auto 2.5 X10*3/uL (1.2-4.9); Mean Corpuscular HGB Conc 32.8 g/dl (31.0-36.0); Mean Corpuscular Hemoglobin 29.2 pg (27.0-33.0); Mean Corpuscular Volume 89.1 fL (80.0-98.0); Mean Platelet Volume 10.8 fL (9.4-12.4); Monocytes Absolute Auto 0.5 X10*3/uL (0.1-1.2); Monocytes Percent Auto 7.3 % (2-11); Neutrophils Percent Auto 46.9 % (45-73); Platelet Count 199 X10*3/uL (160-400); Red Cell Distribution Width 12.8 % (11.0-16.0); White Blood Count 6.3 X10*3/uL (4.8-10.8)
[2024-11-22 14:59] LABS: Alanine Aminotransferase 33 U/L (0-40); Albumin Level 4.3 g/dL (3.5-5.0); Anion Gap 12 (12-20); Aspartate Amino Transferase 34 U/L (5-37); Bilirubin Total 0.7 mg/dL (0.0-1.0); Blood Urea Nitrogen 19 mg/dL (9-16); Calcium 9.9 mg/dL (8.4-10.2); Carbon Dioxide 24 mmol/L (22-29); Chloride 106 mmol/L (96-108); Cholesterol 147 mg/dL (<200); Estimated Glomerular Filt Rate > 60; Glucose Random 243 mg/dL (60-115); HDL Cholesterol 41 mg/dL (>40); LDL Cholesterol Calculated 76 mg/dL (<100); Sodium 138 mmol/L (135-145); Total Protein 7.7 g/dL (6.5-8.0); Triglycerides 153 mg/dL (<150)
[2024-11-22 15:07] LABS: Creatinine Urine 46.43 mg/dL; Microalbum/Creatinine Ratio Ur 86.1 ug/mg cr (<30)
[2024-11-22 15:08] LABS: TSH reflex Free T4 0.99 uIU/mL (0.32-4.0)
[2024-11-22 15:50] LABS: Alkaline Phosphatase 87 U/L (39-117)
[2024-11-23 08:40] LABS: ~HepC Num1 0.11 S/CO (0.00-0.79); ~Hepatitis C Antibody Nonreactive (Nonreactive)
== END 2024-11-22 10:23 | disposition home or self-care (01) ==
LOC: HO.CHCLDS 10:22
PROVIDERS: Visit Provider Internal Medicine
DX: E78.00 Pure hypercholesterolemia, unspecified (principal); E11.65 Type 2 diabetes mellitus with hyperglycemia
CPT/HCPCS: 36415; 80053; 80061; 82043; 82570; 84443; 85025; 86803